=== PATIENT | female | born 1970 | race Two or more races ===

== ENCOUNTER 2024-07-29 13:40 | Outpatient (RCR) | payer MEDICAID, SELFPAY | END 2024-08-01 23:59 | disposition home or self-care (01) | LOC: SCTC 13:40 | PROVIDERS: PCP Obstetrics & Gynecology; Referring Provider Obstetrics & Gynecology; Visit Provider Radiology Therapeutic Radiology | DX: D03.39 Melanoma in situ of other parts of face (principal) | CPT/HCPCS: 99213; G0463 ==

== ENCOUNTER 2024-11-05 13:20 | Outpatient (RCR) | payer MEDICAID, SELFPAY ==
--- NOTE | 2024-11-05 13:48 | CTCFLWUP_ITS ---
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 Patient with melanoma in situ right face initially seen 07/21/2024, following shave biopsy 06/20/2024 revealing malignant melanoma in situ. Excision and removal 2.4 x 1.4 cm moving the 0.5 x 0.5 cm ill-defined lesion containing the in situ melanoma. 08/10/2024. final path indicates that margins were free. Vertical scar right cheek 2.5 cm noted on patient. Dr. Monty Flores MD reportedly came from [place] area to perform the surgical removal according to patient and present. He will reportedly see her again in 6 months. I will see her on as needed basis in the future. No imaging or further studies are needed at this point. Cc: [facility]/Janine Watson [employer] Electronically signed by: Lorenzo Laura M.D. 11/05/2024 1:46 PM
== END 2024-11-29 23:59 | disposition home or self-care (01) ==
LOC: SCTC 13:20
PROVIDERS: PCP Obstetrics & Gynecology; Referring Provider Family Medicine; Visit Provider Radiology Therapeutic Radiology
DX: D03.8 Melanoma in situ of other sites (principal)
CPT/HCPCS: 99212; G0463

== ENCOUNTER → 2024-11-06 | Outpatient (CLI) | payer MEDICAID, SELFPAY ==
--- NOTE | 2024-11-06 15:15 | XR_ITS ---
Examination: Screening digital mammography, bilateral Computer aided detection 3-D breast Tomosynthesis, bilateral Date and time of exam: November 06, 2024 1451 hours Compared to mammograms dating to August 20, 2012 Indication: Screening Technique: Nonmagnified MLO, CC views of the breasts to been obtained, reconstructed from 3-D Tomosynthesis images. R2 computer aided detection program utilized for evaluation of suspicious masses and/or abnormal calcifications. 3-D Tomosynthesis images obtained. Findings: The breasts are heterogeneously dense, which may obscure small masses 22 mm focal asymmetry 3:00 position right breast 18 mm focal asymmetry lower inner left breast mid depth Impression: BI-RADS Category 0: Incomplete: Need additional imaging evaluation Recommend follow-up spot tomographic views of 22 mm focal asymmetry 3:00 position right breast and 18 mm focal asymmetry lower inner left breast as well as bilateral breast sonography to complete workup
== END | disposition home or self-care (01) ==
LOC: CDIM 14:35
PROVIDERS: Referring Provider Nurse Practitioner Family; Visit Provider Nurse Practitioner Family
DX: Z12.31 Encounter for screening mammogram for malignant neoplasm of breast (principal); N64.89 Other specified disorders of breast
CPT/HCPCS: 77063; 77067

== ENCOUNTER → 2024-12-19 | Outpatient (CLI) | payer MEDICAID, SELFPAY ==
--- NOTE | 2024-12-19 09:00 | XR_ITS ---
Examination: Breast ultrasound, unilateral, right complete Date and time of exam: December 19, 2024 0945 hours INDICATIONS: Mammogram October 2024 22 mm focal asymmetry 3:00 position right breast Technique: Real-time amado scale ultrasonographic imaging performed right breast including all 4 quadrants as well as nipple retroareolar and axillary region. Findings: Multiple benign cysts, including 8:00 4 x 3 mm, 11:00 4 x 3 mm, 7:00 3 x 2 mm, 5:00 3 x 3 mm No solid nodules IMPRESSION: BI-RADS Category 2: Benign findings
--- NOTE | 2024-12-19 09:30 | XR_ITS ---
Examination: Diagnostic digital mammography, bilateral Computer aided detection 3-D breast Tomosynthesis, bilateral Date and time of exam: December 19, 2024 1011 hours INDICATIONS: Mammogram November 06, 2024 22 mm focal asymmetry 3:00 position right breast, 18 mm focal asymmetry lower inner left breast Technique: Nonmagnified MLO, CC views of the breasts to been obtained, reconstructed from 3-D Tomosynthesis images. R2 computer aided detection program utilized for evaluation of suspicious masses and/or abnormal calcifications. 3-D Tomosynthesis images obtained. Findings: The breasts are heterogeneously dense, which may obscure small masses No suspicious masses are confirmed on the spot compression views Impression: BI-RADS Category 2: Benign findings Return to yearly follow-up mammography.
== END | disposition home or self-care (01) ==
LOC: CDIM 09:18
PROVIDERS: PCP Nurse Practitioner Family; Referring Provider Nurse Practitioner Family; Visit Provider Nurse Practitioner Family
DX: R92.323 Mammographic fibroglandular density, bilateral breasts (principal); N64.89 Other specified disorders of breast
CPT/HCPCS: 76641; 77062; 77066; G0279